=== PATIENT | male | born 1985 | race Caucasian/White ===

== ENCOUNTER → 2019-09-25 17:08 | Outpatient (BNVA) | payer MEDICARE, SELFPAY | PROVIDERS: Family Provider Family Medicine; PCP Family Medicine; Visit Provider Family Medicine | DX: I10 Essential (primary) hypertension (principal); K21.9 Gastro-esophageal reflux disease without esophagitis; G25.81 Restless legs syndrome; M25.511 Pain in right shoulder; G89.29 Other chronic pain; F41.9 Anxiety disorder, unspecified; K02.9 Dental caries, unspecified | CPT/HCPCS: 80048 ==

== ENCOUNTER → 2019-09-26 09:05 | Outpatient (BNVA) | payer MEDICARE, MEDICAID, SELFPAY | PROVIDERS: Family Provider Family Medicine; PCP Family Medicine; Visit Provider Psychiatry & Neurology Psychiatry | DX: F43.12 Post-traumatic stress disorder, chronic (principal); F33.2 Major depressive disorder, recurrent severe without psychotic features; F41.1 Generalized anxiety disorder; F40.10 Social phobia, unspecified | CPT/HCPCS: 99213 ==

== ENCOUNTER → 2019-11-23 09:18 | Outpatient (BNVA) | payer MEDICARE, MEDICAID, SELFPAY | PROVIDERS: Family Provider Family Medicine; PCP Family Medicine; Visit Provider Psychiatry & Neurology Psychiatry | DX: F43.12 Post-traumatic stress disorder, chronic (principal); F33.2 Major depressive disorder, recurrent severe without psychotic features; F41.1 Generalized anxiety disorder; F40.10 Social phobia, unspecified | CPT/HCPCS: 99214 ==

== ENCOUNTER 2020-01-24 10:52 | Outpatient (CLI) | payer MEDICARE, MEDICAID, SELFPAY ==
[2019-09-03 09:31] VITALS: BP 138/93; BMI 40.6
[2020-01-24 11:41] VITALS: BMI 40.6
--- NOTE | 2020-01-24 11:41 | ECG_ITS ---
NAME OF STUDY: TREADMILL STRESS TEST INDICATION: Chest Pain Baseline blood pressure of 147/76 mm Hg, heart rate 89 beats per minute and oxygen saturation 96%. EKG showed sinus tachycardia normal axis with nonspecific ST-T wave abnormality. The patient exercised for 4 minutes 29 seconds on a standard Efren protocol. Patient attained a maximum heart rate of 167 beats per minute(90 % of the maximum predicted heart rate) with a blood pressure at the peak exercise of 197/69 mm Hg and oxygen saturation 93%. The EKG at the peak exercise revealed sinus tachycardia with half millimeter ST depression in inferolateral leads not meeting diagnostic criteria for ischemia. Patient did not have any chest pain or any significant arrhythmias with the exercise During the recovery phase, there were no new changes. Blood pressure at the end of the recovery phase was 178/87 mm Hg with a heart rate of 99 beats per minute and oxygen saturation 97%. CONCLUSION: 1. Normal EKG response to treadmill exercise. 2. No exercise-induced chest pain or cardiac arrhythmia 3. Decreased exercise tolerance, attained a maximum of 7 METs. Maximum VO2 of 24.5 mL/kg/min. 4. Baseline hypertension with hypertensive response to exercise. Electronically Signed On 01-25-2020 18:22:32 CDT by Gianna Jamison M.D. [email or web address]
[2020-01-24 11:48] VITALS: BP 180/78; PULSE 100
== END 2020-01-24 10:53 | disposition home or self-care (01) ==
PROVIDERS: Family Provider Family Medicine; PCP Family Medicine; Visit Provider Internal Medicine Cardiovascular Disease
DX: R07.89 Other chest pain (principal)
CPT/HCPCS: 93017

== ENCOUNTER → 2020-01-25 09:44 | Outpatient (BNVA) | payer MEDICARE, MEDICAID, SELFPAY ==
[2019-09-03 09:31] VITALS: BP 138/93; BMI 40.6
== END ==
PROVIDERS: Family Provider Family Medicine; PCP Family Medicine; Visit Provider Psychiatry & Neurology Psychiatry
DX: F40.10 Social phobia, unspecified (principal); F41.1 Generalized anxiety disorder; F33.2 Major depressive disorder, recurrent severe without psychotic features; F43.12 Post-traumatic stress disorder, chronic; F10.20 Alcohol dependence, uncomplicated
CPT/HCPCS: 99214

== ENCOUNTER 2020-03-07 10:48 | Outpatient (CLI) | payer MEDICARE, MEDICAID, SELFPAY ==
[2019-09-03 09:31] VITALS: BP 138/93; BMI 40.6
--- NOTE | 2020-03-07 11:30 | XR_ITS ---
WS: [id number] Cervical spine, 3 views, 03/07/2020 Clinical Data: chronic pain Comparison: None. Findings: No compression fractures are seen. There is anterior spurring at the C3-C4 level. The disc heights are normal. There is no prevertebral soft tissue swelling. The odontoid is unremarkable. The soft tissues of the neck and the lung apices are normal. XR/XR cervical spine 3V* [id number] Impression: Osteoarthritis with anterior spurring at C3-C4.
== END 2020-03-07 10:49 | disposition home or self-care (01) ==
PROVIDERS: Family Provider Family Medicine; PCP Family Medicine; Visit Provider Family Medicine
DX: M54.2 Cervicalgia (principal); G89.29 Other chronic pain; M47.812 Spondylosis without myelopathy or radiculopathy, cervical region
CPT/HCPCS: 72040

== ENCOUNTER 2020-04-29 06:00 | Outpatient (RCR) | payer MEDICARE, MEDICAID, SELFPAY ==
[2019-09-03 09:31] VITALS: BP 138/93; BMI 40.6
== END 2020-05-21 23:59 | disposition home or self-care (01) ==
LOC: MPT 06:00
PROVIDERS: PCP Family Medicine; Referring Provider Family Medicine; Visit Provider Family Medicine
DX: M54.12 Radiculopathy, cervical region (principal); M54.2 Cervicalgia; G89.29 Other chronic pain
CPT/HCPCS: 97110; 97161; 97530

== ENCOUNTER → 2020-05-08 09:01 | Outpatient (BNVA) | payer MEDICAID, SELFPAY ==
[2019-09-03 09:31] VITALS: BP 138/93; BMI 40.6
== END ==
PROVIDERS: PCP Family Medicine; Visit Provider Psychiatry & Neurology Psychiatry
DX: F41.1 Generalized anxiety disorder (principal); F33.2 Major depressive disorder, recurrent severe without psychotic features; F43.12 Post-traumatic stress disorder, chronic; F10.20 Alcohol dependence, uncomplicated; F40.10 Social phobia, unspecified
CPT/HCPCS: 99214

== ENCOUNTER 2020-07-22 06:00 | Outpatient (RCR) | payer MEDICARE, MEDICAID, SELFPAY ==
[2019-09-03 09:31] VITALS: BP 138/93; BMI 40.6
== END 2020-08-21 23:59 | disposition home or self-care (01) ==
LOC: MPT 06:00
PROVIDERS: PCP Family Medicine; Referring Provider Family Medicine; Visit Provider Family Medicine
DX: M54.12 Radiculopathy, cervical region (principal); M54.2 Cervicalgia; G89.29 Other chronic pain
CPT/HCPCS: 97110; 97140

== ENCOUNTER → 2020-07-24 08:30 | Outpatient (BNVA) | payer MEDICAID, SELFPAY ==
[2019-09-03 09:31] VITALS: BP 138/93; BMI 40.6
== END ==
PROVIDERS: PCP Family Medicine; Visit Provider Psychiatry & Neurology Psychiatry
DX: F41.1 Generalized anxiety disorder (principal); F33.2 Major depressive disorder, recurrent severe without psychotic features; F43.12 Post-traumatic stress disorder, chronic; F10.20 Alcohol dependence, uncomplicated; F40.10 Social phobia, unspecified
CPT/HCPCS: 99213

== ENCOUNTER 2020-09-01 11:53 | Outpatient (CLI) | payer MEDICARE, MEDICAID, SELFPAY ==
[2019-09-03 09:31] VITALS: BP 138/93; BMI 40.6
--- NOTE | 2020-09-01 13:45 | MR_ITS ---
WS: [id number] MRI CERVICAL SPINE NONCONTRAST TECHNIQUE: Sagittal T1, T2 and STIR imaging. Axial T2, gradient, and fiesta imaging. CLINICAL INFORMATION: M54.12 - Radiculopathy, cervical region COMPARISON: None. FINDINGS: Normal cervical alignment. Cord signal is normal. No high-grade central canal stenosis. C2-C3: Mild right and no significant left foraminal narrowing. Spinal canal is patent. C3-C4: No significant disc bulging. Mild right and no significant left foraminal narrowing. Mild face t arthropathy. C4-C5: Mild disc bulging with osteophytic ridging. Mild central canal stenosis. Moderate facet arthro evan. Mild left greater than right foraminal narrowing. Spinal canal is patent. C5-C6: Tiny shallow central disc protrusion. Mild central canal stenosis. Moderate facet arthropathy. Mild bilateral foraminal narrowing. C6-C7: Tiny central disc protrusion. Moderate left and no significant right foraminal narrowing. Mild facet arthropathy. Spinal canal is patent. C7-T1: Mild left and no significant right foraminal narrowing. Spinal canal is patent. Visualized brain stem structures: Normal. Prevertebral soft tissues: Normal. MR/MR cervical spin wo con* [id number] IMPRESSION: 1. Normal cervical alignment. Cord signal is normal. No high-grade central can al narrowing. 2. Mild central canal stenosis C4-C5 and C5-C6 with tiny shallow central protr usions. 3. Tiny shallow central protrusion C6-C7 without significant central canal rocky rowing. 4. Mild to moderate bony foraminal narrowing right C2-3, left C4-C5, bilateral C5-C6, and moderate left C6-7. 5. Moderate facet arthropathy bilateral C4-C5, bilateral C5-C6,
== END 2020-09-01 11:54 | disposition home or self-care (01) ==
LOC: RADSHAW 11:57
PROVIDERS: PCP Family Medicine; Visit Provider Family Medicine
DX: M54.12 Radiculopathy, cervical region (principal); M47.812 Spondylosis without myelopathy or radiculopathy, cervical region; M50.223 Other cervical disc displacement at C6-C7 level; M48.02 Spinal stenosis, cervical region
CPT/HCPCS: 72141

== ENCOUNTER → 2020-09-25 08:16 | Outpatient (BNVA) | payer MEDICARE, MEDICAID, SELFPAY ==
[2019-09-03 09:31] VITALS: BP 138/93; BMI 40.6
== END ==
PROVIDERS: PCP Family Medicine; Referring Provider Family Medicine; Visit Provider Anesthesiology Pain Medicine
DX: M54.12 Radiculopathy, cervical region (principal); F10.20 Alcohol dependence, uncomplicated; G44.229 Chronic tension-type headache, not intractable; F40.10 Social phobia, unspecified; F41.1 Generalized anxiety disorder; F33.2 Major depressive disorder, recurrent severe without psychotic features; F43.12 Post-traumatic stress disorder, chronic
CPT/HCPCS: 99205

== ENCOUNTER → 2020-10-13 13:51 | Outpatient (BNVA) | payer MEDICARE, MEDICAID, SELFPAY ==
[2019-09-03 09:31] VITALS: BP 138/93; BMI 40.6
== END ==
PROVIDERS: PCP Family Medicine; Visit Provider Anesthesiology Pain Medicine
DX: M47.812 Spondylosis without myelopathy or radiculopathy, cervical region (principal)
CPT/HCPCS: 64490; 64491; 64492; J3490

== ENCOUNTER → 2020-10-20 13:05 | Outpatient (BNVA) | payer MEDICARE, MEDICAID, SELFPAY ==
[2019-09-03 09:31] VITALS: BP 138/93; BMI 40.6
== END ==
PROVIDERS: PCP Family Medicine; Visit Provider Anesthesiology Pain Medicine
DX: M47.812 Spondylosis without myelopathy or radiculopathy, cervical region (principal)
CPT/HCPCS: 64490; 64491; 64492; J3490

== ENCOUNTER → 2020-11-04 10:20 | Outpatient (BNVA) | payer MEDICARE, MEDICAID, SELFPAY ==
[2019-09-03 09:31] VITALS: BP 138/93; BMI 40.6
== END ==
PROVIDERS: PCP Family Medicine; Visit Provider Anesthesiology Pain Medicine
DX: G89.29 Other chronic pain (principal); G44.229 Chronic tension-type headache, not intractable; M54.12 Radiculopathy, cervical region; F10.20 Alcohol dependence, uncomplicated; F40.10 Social phobia, unspecified; F41.1 Generalized anxiety disorder; F33.2 Major depressive disorder, recurrent severe without psychotic features; F43.12 Post-traumatic stress disorder, chronic; M54.5 Low back pain
CPT/HCPCS: 99214

== ENCOUNTER → 2020-11-18 13:21 | Outpatient (BNVA) | payer MEDICARE, MEDICAID, SELFPAY ==
[2019-09-03 09:31] VITALS: BP 138/93; BMI 40.6
== END ==
PROVIDERS: PCP Family Medicine; Visit Provider Anesthesiology Pain Medicine
DX: M47.812 Spondylosis without myelopathy or radiculopathy, cervical region (principal)
CPT/HCPCS: 64633; 64634; J1030

== ENCOUNTER → 2020-12-16 14:00 | Outpatient (BNVA) | payer MEDICARE, MEDICAID, SELFPAY ==
[2019-09-03 09:31] VITALS: BP 138/93; BMI 40.6
== END ==
PROVIDERS: PCP Family Medicine; Visit Provider Family Medicine
DX: G25.2 Other specified forms of tremor (principal); R73.9 Hyperglycemia, unspecified; Z13.1 Encounter for screening for diabetes mellitus; I10 Essential (primary) hypertension; Z13.220 Encounter for screening for lipoid disorders; Z13.6 Encounter for screening for cardiovascular disorders
CPT/HCPCS: 80053; 80061; 83036; 84443

== ENCOUNTER → 2021-07-07 15:40 | Outpatient (BNVA) | payer MEDICARE, MEDICAID, SELFPAY ==
[2020-12-23 15:59] VITALS: BP 140/84; BMI 37.5
== END ==
PROVIDERS: PCP Family Medicine; Visit Provider Family Medicine
DX: S69.92XA Unspecified injury of left wrist, hand and finger(s), initial encounter (principal); X58.XXXA Exposure to other specified factors, initial encounter; I10 Essential (primary) hypertension
CPT/HCPCS: 73130; 80048

== ENCOUNTER → 2021-12-01 15:17 | Outpatient (BNVA) | payer MEDICARE, MEDICAID, SELFPAY ==
[2020-12-23 15:59] VITALS: BP 140/84; BMI 37.5
== END ==
PROVIDERS: PCP Family Medicine; Visit Provider Family Medicine
DX: J44.9 Chronic obstructive pulmonary disease, unspecified (principal); S46.811A Strain of other muscles, fascia and tendons at shoulder and upper arm level, right arm, initial encounter; K21.9 Gastro-esophageal reflux disease without esophagitis; I10 Essential (primary) hypertension; Z72.0 Tobacco use; F20.0 Paranoid schizophrenia; R74.8 Abnormal levels of other serum enzymes
CPT/HCPCS: 80053; 80061; 85025

== ENCOUNTER → 2022-12-01 13:48 | Outpatient (BNVA) | payer MEDICARE, MEDICAID, SELFPAY ==
[2021-12-07 12:04] VITALS: BP 128/90; BMI 30.9
== END ==
PROVIDERS: PCP Family Medicine; Visit Provider Family Medicine
DX: I10 Essential (primary) hypertension (principal); J44.9 Chronic obstructive pulmonary disease, unspecified
CPT/HCPCS: 80053; 80061

== ENCOUNTER → 2023-12-08 11:07 | Outpatient (BNVA) | payer MEDICARE, SELFPAY ==
[2021-12-07 12:04] VITALS: BP 128/90; BMI 30.9
== END ==
PROVIDERS: PCP Family Medicine; Referring Provider Family Medicine; Visit Provider Family Medicine
DX: I10 Essential (primary) hypertension (principal)
CPT/HCPCS: 80053; 80061

== ENCOUNTER → 2024-06-11 09:23 | Outpatient (BNVA) | payer MEDICARE, MEDICAID, SELFPAY ==
[2021-12-07 12:04] VITALS: BP 128/90; BMI 30.9
== END ==
PROVIDERS: PCP Family Medicine; Visit Provider Family Medicine
DX: I10 Essential (primary) hypertension (principal); R74.8 Abnormal levels of other serum enzymes
CPT/HCPCS: 80053; 86705; 86706; 86709; 86803; 87340

== ENCOUNTER → 2024-12-04 10:16 | Outpatient (BNVA) | payer MEDICARE, MEDICAID, SELFPAY ==
[2021-12-07 12:04] VITALS: BP 128/90; BMI 30.9
== END ==
PROVIDERS: PCP Family Medicine; Visit Provider Family Medicine
DX: I10 Essential (primary) hypertension (principal); E78.2 Mixed hyperlipidemia
CPT/HCPCS: 80053; 80061

== ENCOUNTER → 2025-07-30 09:49 | Outpatient (BNVA) | payer MEDICARE, MEDICAID, SELFPAY ==
[2021-12-07 12:04] VITALS: BP 128/90; BMI 30.9
== END ==
PROVIDERS: PCP Family Medicine; Visit Provider Anesthesiology Pain Medicine
DX: M54.9 Dorsalgia, unspecified (principal); F17.200 Nicotine dependence, unspecified, uncomplicated
CPT/HCPCS: 99204